=== PATIENT | female | born 1950 | race Asian ===

== ENCOUNTER 2017-06-27 11:45 | Day surgery (SDC) | payer OTHER ==
[2017-06-27] MEDS ORDERED: LIDOCAINE 2% (SDV) 5 ML INJ (12:32)
[2017-06-27] MEDS ORDERED: PROPOFOL 20 ML (12:32)
== END 2017-06-27 16:10 | disposition home or self-care (01) ==
LOC: GIL 11:45
DX: Z85.048 Personal history of other malignant neoplasm of rectum, rectosigmoid junction, and anus (principal); E11.9 Type 2 diabetes mellitus without complications
CPT/HCPCS: 44388; 82962

== ENCOUNTER 2017-10-05 14:16 | Inpatient (IN) | payer MEDICAID, OTHER ==
[2017-10-05 15:24] LABS: HEMATOCRIT 47.4 % (37.0-47.0); HEMOGLOBIN 16.1 g/dl (12.0-16.0); MEAN CORPUSCULAR HEMOGLOBIN 31.4 pg (29.0-33.0); MEAN CORPUSCULAR VOLUME 92.6 fl (82.0-101.0); MEAN PLATELET VOLUME 10.8 fl (7.4-10.4); PLATELET COUNT 221 10^3/UL (140-415); RED BLOOD COUNT 5.12 10^6/ul (4.20-5.40); RED CELL DISTRIBUTION WIDTH 12.4 % (11.5-14.5)
[2017-10-05 15:24] LABS: WHITE BLOOD COUNT 4.7 10^3/ul (4.8-10.8)
[2017-10-05] MEDS: ONDANSETRON 4 MG INJ IV ×2 (15:24→20:28)
[2017-10-05] MEDS: SOD CHLORIDE 0.9% 1,000 ML IV ×2 (15:25→21:47)
[2017-10-05] MEDS: HYDROmorphONE 1 MG/5 ML IV SYRINGE IV (15:25)
[2017-10-05 15:29] LABS: ADD MAN DIFF? YES; POSITIVE DIFF @See below
[2017-10-05 16:20] LABS: BAND NEUTROPHILS #M 1.4 10^3/ul (0.0-0.6); BAND NEUTROPHILS % (M) 30 % (0-4); GIANT THROMBO% (M) 1 % (0-0); INR 1.09; LYMPHOCYTES % (M) 23 % (15-51); MONOCYTE #M 0.2 10^3/ul (0.3-0.9); MONOCYTES % (M) 6 % (0-11); PLATELET ESTIMATE NORMAL; POIKILOCYTOSIS 1+ (0-0); PROTIME 14.3 Sec (11.9-14.9); PT RATIO 1.1; SEGMENTED NEUTROPHILS (M) % 41 % (39-77); SMUDGE%M 1 % (0-0); TEAR DROP CELLS 1+ (0-0)
[2017-10-05 16:23] LABS: ALANINE AMINOTRANSFERASE 32 IU/L (13-69); ALBUMIN 4.1 g/dl (3.3-4.9); ALBUMIN/GLOBULIN RATIO 1.28; ALKALINE PHOSPHATASE 80 IU/L (42-121); ANION GAP 18 (8-16); ASPARTATE AMINO TRANSFERASE 39 IU/L (15-46); BILIRUBIN,INDIRECT 2.5 mg/dl (0-1.1); BILIRUBIN,TOTAL 2.5 mg/dl (0.2-1.3); BLOOD UREA NITROGEN 21 mg/dl (7-20); CALCIUM 9.3 mg/dl (8.4-10.2); CARBON DIOXIDE 24 mmol/L (21-31); CHLORIDE 101 mmol/L (97-110); CREATININE 0.62 mg/dl (0.44-1.00); GLUCOSE 253 mg/dl (70-220); LIPASE 26 U/L (23-300); POTASSIUM 4.4 mmol/L (3.5-5.1); SODIUM 139 mmol/L (135-144); TOTAL PROTEIN 7.3 g/dl (6.1-8.1)
[2017-10-05 18:20] LABS: ADD UMIC YES; UR ASCORBIC ACID NEGATIVE (NEGATIVE); UR BILIRUBIN (Dip) NEGATIVE (NEGATIVE); UR BLOOD (Dip) NEGATIVE (NEGATIVE); UR CLARITY CLEAR (CLEAR); UR COLOR YELLOW (YELLOW); UR GLUCOSE (Dip) 3+ mg/dL (NEGATIVE); UR KETONES (Dip) 1+ mg/dL (NEGATIVE); UR LEUKOCYTE ESTERASE (Dip) NEGATIVE Leu/ul (NEGATIVE); UR MUCUS MANY /HPF (NONE SEEN); UR NITRITE (Dip) NEGATIVE (NEGATIVE); UR RBC 0 /HPF (0-5); UR SPECIFIC GRAVITY (Dip) 1.026 (1.003-1.030); UR TOTAL PROTEIN (Dip) 1+ mg/dl (NEGATIVE); UR UROBILINOGEN (Dip) NEGATIVE (NEGATIVE); UR WBC 0 /HPF (0-5)
[2017-10-05] MEDS: HYDROmorphONE 0.5 MG/0.5 ML SYG IV (18:55)
[2017-10-05] MEDS ORDERED: ACETAMINOPHEN 325 MG TAB PO (19:00)
[2017-10-05] MEDS ORDERED: NACL 0.9% 3 ML SYG IV (20:00)
[2017-10-05] MEDS ORDERED: morphine 2 MG INJ IV (20:00)
[2017-10-05] MEDS ORDERED: LORAZEPAM 2 MG INJ (20:30)
[2017-10-05] MEDS: LORAZEPAM 2 MG INJ IV (20:32)
[2017-10-05] MEDS: FAMOTIDINE 20 MG INJ IV (21:47)
[2017-10-05] MEDS: INSULIN ASPART [NOVOLOG] 3 ML PEN SC (23:35)
[2017-10-05] MEDS ORDERED: GLUCOSE GEL 15 GRAM TUBE BUCCAL (23:45)
[2017-10-05] MEDS ORDERED: DEXTROSE 50% 50 ML SYRINGE IV ×2 (23:45)
[2017-10-05] MEDS ORDERED: GLUCOSE GEL 15 GRAM TUBE PO ×2 (23:45)
[2017-10-05] MEDS ORDERED: GLUCAGON 1 MG INJ IM (23:45)
[2017-10-06 05:11] LABS: ADD MAN DIFF? NO
[2017-10-06 05:17] LABS: WHITE BLOOD COUNT 3.2 10^3/ul (4.8-10.8)
[2017-10-06 05:17] LABS: BASOPHILS % 0.6 % (0.0-2.0); HEMATOCRIT 34.6 % (37.0-47.0); HEMOGLOBIN 11.9 g/dl (12.0-16.0); LYMPHOCYTES # 1.1 10^3/ul (0.8-2.9); LYMPHOCYTES % 33.7 % (15.0-51.0); MEAN CORPUSCULAR HGB CONC 34.4 g/dl (32.0-37.0); MEAN PLATELET VOLUME 10.9 fl (7.4-10.4); MONOCYTE # 0.6 10^3/ul (0.3-0.9); MONOCYTES % 18.1 % (0.0-11.0); NEUTROPHIL # 1.5 10^3/ul (1.6-7.5); NEUTROPHILS % 46.6 % (39.0-77.0); PLATELET COUNT 183 10^3/UL (140-415); RED BLOOD COUNT 3.72 10^6/ul (4.20-5.40); RED CELL DISTRIBUTION WIDTH 12.7 % (11.5-14.5)
[2017-10-06] MEDS: INSULIN ASPART [NOVOLOG] 3 ML PEN SC ×3 (05:42→18:00)
[2017-10-06 05:43] LABS: ALANINE AMINOTRANSFERASE 31 IU/L (13-69); ALBUMIN 3.2 g/dl (3.3-4.9); ALBUMIN/GLOBULIN RATIO 1.14; ALKALINE PHOSPHATASE 60 IU/L (42-121); ANION GAP 14 (8-16); ASPARTATE AMINO TRANSFERASE 26 IU/L (15-46); BILIRUBIN,INDIRECT 2.1 mg/dl (0-1.1); BILIRUBIN,TOTAL 2.1 mg/dl (0.2-1.3); BLOOD UREA NITROGEN 19 mg/dl (7-20); CALCIUM 8.2 mg/dl (8.4-10.2); CARBON DIOXIDE 25 mmol/L (21-31); CHLORIDE 108 mmol/L (97-110); CREATININE 0.61 mg/dl (0.44-1.00); GLUCOSE 164 mg/dl (70-220); POTASSIUM 3.9 mmol/L (3.5-5.1); SODIUM 143 mmol/L (135-144)
[2017-10-06] MEDS: SOD CHLORIDE 0.9% 1,000 ML IV ×3 (05:45→19:58)
[2017-10-06 06:38] LABS: POSITIVE DIFF @See below
[2017-10-06] MEDS: FAMOTIDINE 20 MG INJ IV ×2 (08:18→20:29)
[2017-10-06] MEDS: ENOXAPARIN 30 MG/0.3 ML SYG SC (08:20)
[2017-10-06 09:30] LABS: BAND NEUTROPHILS #M 0.8 10^3/ul (0.0-0.6); BAND NEUTROPHILS % (M) 28 % (0-4); LYMPHOCYTES #M 1.3 10^3/ul (0.8-2.9); LYMPHOCYTES % (M) 42 % (15-51); MONOCYTE #M 0.6 10^3/ul (0.3-0.9); MONOCYTES % (M) 19 % (0-11); PLATELET ESTIMATE NORMAL; SEG NEUT #M 0.4 10^3/ul (1.6-7.5); SEGMENTED NEUTROPHILS (M) % 11 % (39-77); SMUDGE%M 16 % (0-0)
[2017-10-06] MEDS: HYDROmorphONE 0.5 MG/0.5 ML SYG IV ×3 (10:20→22:53)
[2017-10-07 05:06] LABS: ADD MAN DIFF? NO
[2017-10-07 05:08] LABS: BASOPHILS % 0.6 % (0.0-2.0); EOSINOPHILS % 0.6 % (0.0-7.0); HEMATOCRIT 34.8 % (37.0-47.0); HEMOGLOBIN 11.7 g/dl (12.0-16.0); LYMPHOCYTES # 0.7 10^3/ul (0.8-2.9); LYMPHOCYTES % 22.9 % (15.0-51.0); MEAN CORPUSCULAR HGB CONC 33.6 g/dl (32.0-37.0); MEAN CORPUSCULAR VOLUME 95.1 fl (82.0-101.0); MONOCYTE # 0.6 10^3/ul (0.3-0.9); MONOCYTES % 17.6 % (0.0-11.0); NEUTROPHIL # 1.9 10^3/ul (1.6-7.5); PLATELET COUNT 182 10^3/UL (140-415); RED BLOOD COUNT 3.66 10^6/ul (4.20-5.40); RED CELL DISTRIBUTION WIDTH 12.8 % (11.5-14.5)
[2017-10-07 05:08] LABS: WHITE BLOOD COUNT 3.2 10^3/ul (4.8-10.8)
[2017-10-07 05:18] LABS: POSITIVE DIFF @See below
[2017-10-07 05:25] LABS: AMYLASE 54 U/L (11-123)
[2017-10-07 05:25] LABS: LIPASE 49 U/L (23-300)
[2017-10-07 05:27] LABS: ANION GAP 16 (8-16); BLOOD UREA NITROGEN 17 mg/dl (7-20); CARBON DIOXIDE 22 mmol/L (21-31); CHLORIDE 111 mmol/L (97-110); CREATININE 0.52 mg/dl (0.44-1.00); GLUCOSE 109 mg/dl (70-220); POTASSIUM 3.8 mmol/L (3.5-5.1); SODIUM 145 mmol/L (135-144)
[2017-10-07 05:57] LABS: CARCINOEMBRYONIC ANTIGEN 0.6 ng/ml (0.0-5.0)
[2017-10-07] MEDS: INSULIN ASPART [NOVOLOG] 3 ML PEN SC ×4 (06:00→17:55)
[2017-10-07 06:01] LABS: CANCER ANTIGEN 19-9 13.5 U/ml (0.0-37.0)
[2017-10-07] MEDS: SOD CHLORIDE 0.9% 1,000 ML IV ×3 (06:03→21:45)
[2017-10-07] MEDS: DIATR MEGLU/DIATRIZOATE SODIUM 120 ML BTL (08:27)
[2017-10-07] MEDS: FAMOTIDINE 20 MG INJ IV ×2 (08:28→19:53)
[2017-10-07] MEDS: IOHEXOL 300MG/ML 150 ML BTL ×2 (08:51)
[2017-10-07] MEDS: HYDROmorphONE 0.5 MG/0.5 ML SYG IV (09:59)
[2017-10-07] MEDS: MINERAL OIL 30ML CUP PO (17:57)
[2017-10-07] MEDS ORDERED: INSULIN ASPART [NOVOLOG] 3 ML PEN SC (19:30)
[2017-10-07] MEDS: Insulin NOVOLOG SS MODERATE Algorithm(NPO/TPN/ENTERAL FEEDS) SC (19:30)
[2017-10-07 20:09] LABS: HEMATOCRIT 34.6 % (37.0-47.0); HEMOGLOBIN 11.4 g/dl (12.0-16.0)
[2017-10-08 04:08] LABS: HEMATOCRIT 31.9 % (37.0-47.0); HEMOGLOBIN 10.8 g/dl (12.0-16.0); MEAN CORPUSCULAR HGB CONC 33.9 g/dl (32.0-37.0); MEAN CORPUSCULAR VOLUME 94.4 fl (82.0-101.0); MEAN PLATELET VOLUME 10.6 fl (7.4-10.4); PLATELET COUNT 157 10^3/UL (140-415); RED BLOOD COUNT 3.38 10^6/ul (4.20-5.40); RED CELL DISTRIBUTION WIDTH 12.6 % (11.5-14.5)
[2017-10-08 04:08] LABS: WHITE BLOOD COUNT 4.9 10^3/ul (4.8-10.8)
[2017-10-08 04:18] LABS: POSITIVE DIFF @See below
[2017-10-08 04:19] LABS: ADD MAN DIFF? YES
[2017-10-08 04:59] LABS: ALANINE AMINOTRANSFERASE 25 IU/L (13-69); ALBUMIN 2.8 g/dl (3.3-4.9); ALBUMIN/GLOBULIN RATIO 1.12; ALKALINE PHOSPHATASE 48 IU/L (42-121); ANION GAP 9 (8-16); ASPARTATE AMINO TRANSFERASE 20 IU/L (15-46); BILIRUBIN,INDIRECT 0.8 mg/dl (0-1.1); BILIRUBIN,TOTAL 0.8 mg/dl (0.2-1.3); BLOOD UREA NITROGEN 13 mg/dl (7-20); CARBON DIOXIDE 25 mmol/L (21-31); CHLORIDE 112 mmol/L (97-110); CREATININE 0.54 mg/dl (0.44-1.00); GLUCOSE 97 mg/dl (70-220); POTASSIUM 3.4 mmol/L (3.5-5.1); SODIUM 143 mmol/L (135-144); TOTAL PROTEIN 5.3 g/dl (6.1-8.1)
[2017-10-08 05:23] LABS: BAND NEUTROPHILS #M 0.4 10^3/ul (0.0-0.6); BAND NEUTROPHILS % (M) 9 % (0-4); EOSINOPHILS % (M) 1 % (0-7); ERYTHROBLAST% (NRBC) (M) 1 % (0-0); GIANT THROMBO% (M) 2 % (0-0); LYMPHOCYTES #M 1.4 10^3/ul (0.8-2.9); LYMPHOCYTES % (M) 29 % (15-51); MONOCYTE #M 0.6 10^3/ul (0.3-0.9); MONOCYTES % (M) 13 % (0-11); PLATELET ESTIMATE NORMAL; PROMYELOCYTES #M 0.2 10^3/ul (0-0); PROMYELOCYTES % (M) 6 % (0-0); REACTIVE LYMPHOCYTES% (M) 1 % (0-0); SEGMENTED NEUTROPHILS (M) % 41 % (39-77)
[2017-10-08] MEDS: SOD CHLORIDE 0.9% 1,000 ML IV ×2 (05:33→15:43)
[2017-10-08] MEDS: Insulin NOVOLOG SS MODERATE Algorithm(NPO/TPN/ENTERAL FEEDS) SC ×2 (05:33)
[2017-10-08] MEDS: FAMOTIDINE 20 MG INJ IV ×2 (08:52→21:31)
[2017-10-08 11:11] LABS: HEMATOCRIT 33.5 % (37.0-47.0); HEMOGLOBIN 11.3 g/dl (12.0-16.0)
[2017-10-08] MEDS: INSULIN ASPART [NOVOLOG] 3 ML PEN SC ×3 (13:03→21:00)
[2017-10-08] MEDS: MINERAL OIL 30ML CUP PO ×2 (13:04→21:31)
[2017-10-08] MEDS: POTASSIUM CHLORIDE 20 MEQ POWDER FOR ORAL SOLN PO (19:01)
[2017-10-08] MEDS ORDERED: POTASSIUM CHLORIDE 50 ML IVPB (22:00)
[2017-10-08] MEDS: POTASSIUM CHLORIDE 50 ML IVPB (22:38)
[2017-10-09] MEDS: POTASSIUM CHLORIDE 50 ML IVPB ×2 (00:09→02:39)
[2017-10-09] MEDS: SOD CHLORIDE 0.9% 1,000 ML IV ×3 (04:36→17:52)
[2017-10-09 05:01] LABS: ADD MAN DIFF? NO
[2017-10-09 05:07] LABS: BASOPHILS % 0.3 % (0.0-2.0); EOSINOPHILS # 0.1 10^3/ul (0.0-0.5); HEMATOCRIT 31.6 % (37.0-47.0); HEMOGLOBIN 11.1 g/dl (12.0-16.0); LYMPHOCYTES # 1.4 10^3/ul (0.8-2.9); LYMPHOCYTES % 23.9 % (15.0-51.0); MEAN CORPUSCULAR HEMOGLOBIN 31.7 pg (29.0-33.0); MEAN CORPUSCULAR HGB CONC 35.1 g/dl (32.0-37.0); MEAN CORPUSCULAR VOLUME 90.3 fl (82.0-101.0); MEAN PLATELET VOLUME 10.8 fl (7.4-10.4); MONOCYTE # 0.6 10^3/ul (0.3-0.9); MONOCYTES % 10.3 % (0.0-11.0); NEUTROPHIL # 3.7 10^3/ul (1.6-7.5); PLATELET COUNT 166 10^3/UL (140-415); RED CELL DISTRIBUTION WIDTH 12.3 % (11.5-14.5)
[2017-10-09 05:07] LABS: WHITE BLOOD COUNT 5.8 10^3/ul (4.8-10.8)
[2017-10-09 05:23] LABS: ANION GAP 11 (8-16); BLOOD UREA NITROGEN 10 mg/dl (7-20); CARBON DIOXIDE 23 mmol/L (21-31); CHLORIDE 109 mmol/L (97-110); CREATININE 0.47 mg/dl (0.44-1.00); GLUCOSE 210 mg/dl (70-220); POTASSIUM 3.6 mmol/L (3.5-5.1); SODIUM 139 mmol/L (135-144)
[2017-10-09] MEDS: MINERAL OIL 30ML CUP PO ×3 (08:46→21:00)
[2017-10-09] MEDS: FAMOTIDINE 20 MG INJ IV ×2 (08:46→21:42)
[2017-10-09] MEDS: INSULIN ASPART [NOVOLOG] 3 ML PEN SC ×4 (08:49→21:00)
[2017-10-09] MEDS: ONDANSETRON 4 MG INJ IV (12:55)
[2017-10-09] MEDS: HYDROmorphONE 0.5 MG/0.5 ML SYG IV (12:55)
[2017-10-10 05:31] LABS: ADD MAN DIFF? NO
[2017-10-10 05:46] LABS: BASOPHILS % 0.2 % (0.0-2.0); EOSINOPHILS # 0.1 10^3/ul (0.0-0.5); EOSINOPHILS % 1.4 % (0.0-7.0); HEMATOCRIT 32.8 % (37.0-47.0); HEMOGLOBIN 11.5 g/dl (12.0-16.0); LYMPHOCYTES # 1.3 10^3/ul (0.8-2.9); LYMPHOCYTES % 27.7 % (15.0-51.0); MEAN CORPUSCULAR HGB CONC 35.1 g/dl (32.0-37.0); MEAN CORPUSCULAR VOLUME 91.4 fl (82.0-101.0); MEAN PLATELET VOLUME 10.8 fl (7.4-10.4); MONOCYTE # 0.6 10^3/ul (0.3-0.9); MONOCYTES % 11.4 % (0.0-11.0); NEUTROPHIL # 2.8 10^3/ul (1.6-7.5); NEUTROPHILS % 58.7 % (39.0-77.0); PLATELET COUNT 172 10^3/UL (140-415); RED BLOOD COUNT 3.59 10^6/ul (4.20-5.40); RED CELL DISTRIBUTION WIDTH 12.3 % (11.5-14.5)
[2017-10-10 05:46] LABS: WHITE BLOOD COUNT 4.8 10^3/ul (4.8-10.8)
[2017-10-10 06:08] LABS: ANION GAP 9 (8-16); BLOOD UREA NITROGEN 7 mg/dl (7-20); CALCIUM 8.3 mg/dl (8.4-10.2); CARBON DIOXIDE 29 mmol/L (21-31); CHLORIDE 107 mmol/L (97-110); CREATININE 0.46 mg/dl (0.44-1.00); GLUCOSE 138 mg/dl (70-220); POTASSIUM 3.3 mmol/L (3.5-5.1); SODIUM 142 mmol/L (135-144)
[2017-10-10] MEDS: MINERAL OIL 30ML CUP PO ×3 (07:39→20:28)
[2017-10-10] MEDS: SOD CHLORIDE 0.9% 1,000 ML IV ×2 (07:40→20:31)
[2017-10-10] MEDS: INSULIN ASPART [NOVOLOG] 3 ML PEN SC ×4 (07:50→20:28)
[2017-10-10] MEDS: FAMOTIDINE 20 MG INJ IV (08:46)
[2017-10-10] MEDS: POTASSIUM CHLORIDE 100 ML IVPB ×2 (13:43→17:43)
[2017-10-10] MEDS: PROPOFOL 40 ML (15:40)
[2017-10-10] MEDS: PANTOPRAZOLE 40 MG INJ IV (18:13)
[2017-10-10] MEDS: SOD CHLORIDE 0.9% 100 ML (19:19)
[2017-10-10] MEDS: IOHEXOL 300MG/ML 150 ML BTL (19:19)
[2017-10-11 04:53] LABS: ADD MAN DIFF? NO
[2017-10-11 04:58] LABS: WHITE BLOOD COUNT 5.1 10^3/ul (4.8-10.8)
[2017-10-11 04:58] LABS: BASOPHILS % 0.2 % (0.0-2.0); EOSINOPHILS # 0.1 10^3/ul (0.0-0.5); EOSINOPHILS % 1.8 % (0.0-7.0); HEMOGLOBIN 11.7 g/dl (12.0-16.0); LYMPHOCYTES # 1.3 10^3/ul (0.8-2.9); LYMPHOCYTES % 25.6 % (15.0-51.0); MEAN CORPUSCULAR HEMOGLOBIN 31.6 pg (29.0-33.0); MEAN CORPUSCULAR HGB CONC 34.4 g/dl (32.0-37.0); MEAN CORPUSCULAR VOLUME 91.9 fl (82.0-101.0); MEAN PLATELET VOLUME 10.6 fl (7.4-10.4); MONOCYTE # 0.6 10^3/ul (0.3-0.9); NEUTROPHIL # 3.1 10^3/ul (1.6-7.5); NEUTROPHILS % 60.6 % (39.0-77.0); PLATELET COUNT 186 10^3/UL (140-415); RED CELL DISTRIBUTION WIDTH 12.5 % (11.5-14.5)
[2017-10-11] MEDS: PANTOPRAZOLE 40 MG INJ IV ×2 (05:17→18:09)
[2017-10-11 05:18] LABS: ANION GAP 7 (8-16); BLOOD UREA NITROGEN 4 mg/dl (7-20); CALCIUM 8.1 mg/dl (8.4-10.2); CARBON DIOXIDE 28 mmol/L (21-31); CHLORIDE 110 mmol/L (97-110); GLUCOSE 175 mg/dl (70-220); POTASSIUM 3.4 mmol/L (3.5-5.1); SODIUM 142 mmol/L (135-144)
[2017-10-11] MEDS: SOD CHLORIDE 0.9% 1,000 ML IV ×2 (05:20→15:45)
[2017-10-11] MEDS: MINERAL OIL 30ML CUP PO ×4 (09:00→21:48)
[2017-10-11] MEDS: INSULIN ASPART [NOVOLOG] 3 ML PEN SC ×4 (09:02→21:00)
[2017-10-12] MEDS: SOD CHLORIDE 0.9% 1,000 ML IV ×2 (01:45→11:45)
[2017-10-12] MEDS: PANTOPRAZOLE 40 MG INJ IV (06:25)
[2017-10-12] MEDS: MINERAL OIL 30ML CUP PO ×2 (08:55→12:53)
[2017-10-12] MEDS: INSULIN ASPART [NOVOLOG] 3 ML PEN SC ×2 (08:58→13:01)
[2017-10-12 14:36] LABS: ADD MAN DIFF? NO
[2017-10-12 14:38] LABS: WHITE BLOOD COUNT 6.3 10^3/ul (4.8-10.8)
[2017-10-12 14:38] LABS: BASOPHILS % 0.3 % (0.0-2.0); EOSINOPHILS # 0.1 10^3/ul (0.0-0.5); EOSINOPHILS % 1.1 % (0.0-7.0); HEMATOCRIT 37.9 % (37.0-47.0); HEMOGLOBIN 12.9 g/dl (12.0-16.0); LYMPHOCYTES # 1.8 10^3/ul (0.8-2.9); LYMPHOCYTES % 28.1 % (15.0-51.0); MEAN CORPUSCULAR HEMOGLOBIN 31.3 pg (29.0-33.0); MEAN PLATELET VOLUME 10.3 fl (7.4-10.4); MONOCYTE # 0.6 10^3/ul (0.3-0.9); MONOCYTES % 9.5 % (0.0-11.0); NEUTROPHIL # 3.8 10^3/ul (1.6-7.5); NEUTROPHILS % 59.6 % (39.0-77.0); PLATELET COUNT 227 10^3/UL (140-415); RED BLOOD COUNT 4.12 10^6/ul (4.20-5.40); RED CELL DISTRIBUTION WIDTH 12.9 % (11.5-14.5)
[2017-10-12 14:59] LABS: ANION GAP 16 (8-16); BLOOD UREA NITROGEN 8 mg/dl (7-20); CALCIUM 9.4 mg/dl (8.4-10.2); CARBON DIOXIDE 27 mmol/L (21-31); CHLORIDE 103 mmol/L (97-110); CREATININE 0.56 mg/dl (0.44-1.00); GLUCOSE 158 mg/dl (70-220); POTASSIUM 3.9 mmol/L (3.5-5.1); SODIUM 142 mmol/L (135-144)
== END 2017-10-12 17:15 | disposition home or self-care (01) | DRG 390 ==
LOC: E/R 14:16 → MS1 18:38
PROVIDERS: Internal Medicine
PROC: 0DD68ZX Extraction of Stomach, Via Natural or Artificial Opening Endoscopic, Diagnostic (ICD-10-PCS; principal; 2017-10-10 15:30)
DX: K56.609 Unspecified intestinal obstruction, unspecified as to partial versus complete obstruction (principal); K29.70 Gastritis, unspecified, without bleeding; E78.5 Hyperlipidemia, unspecified; E11.9 Type 2 diabetes mellitus without complications; I10 Essential (primary) hypertension; Z90.710 Acquired absence of both cervix and uterus; E78.00 Pure hypercholesterolemia, unspecified; D64.9 Anemia, unspecified; Z85.038 Personal history of other malignant neoplasm of large intestine; Z93.3 Colostomy status; K59.00 Constipation, unspecified
CPT/HCPCS: 36415; 70470; 71045; 73562; 74018; 74176; 74181; 74250; 76705; 80048; 80053; 81001; 82150; 82378; 82962; 83690; 85014; 85018; 85025; 85610; 85730; 86301; 88305; 88312; 96374; 96375; 96376; 97162; 99285-25